=== PATIENT | male | born 1975 ===

== ENCOUNTER 2016-11-14 08:47 | Emergency (ER) | payer MEDICARE, MEDICAID ==
--- NOTE | ~2016-11-14 | ER ---
[facility] AGE: 41 Y [address] ROOM: [place] [address] LOCATION: [facility] ADMIT DATE: 11/14/2016 ER/Outpatient Report DISCHARGE DATE: FAMILY PHYSICIAN: Jose Lang MD ATTENDING PHYSICIAN: Lucas Euceda TIME OF ARRIVAL: 0847 hours. TIME OF EVALUATION: 0850 hours. CHIEF COMPLAINT: Chest pain, midepigastric abdominal pain. HISTORY OF PRESENT ILLNESS: The patient is a 41-year-old male who presents to the emergency department today with chief complaint of chest pain, midepigastric abdominal pain. He reports this started about 3 days prior to arrival. Does have some nausea and vomiting for 2 days. Denies any shortness of breath. Does have some diaphoresis and weakness. Pain is currently 7/10 in severity. He has also been coughing. It is a sharp type pain. The patient denies any history of blood clots in legs or lungs. Denies any ripping or tearing sensation. PAST MEDICAL HISTORY: Depression, anxiety, insulin-dependent diabetes, hypertension. PAST SURGICAL HISTORY: None. SOCIAL HISTORY: The patient denies any tobacco, alcohol, or illicit drug use. ALLERGIES: NO KNOWN DRUG ALLERGIES. MEDICATIONS: Please see list. PRIMARY CARE DOCTOR: Jose Lang MD. REVIEW OF SYSTEMS: All systems are reviewed by myself and negative with the exception of those discussed in HPI and past medical history. PHYSICAL EXAMINATION: VITAL SIGNS: Weight 140.8 kg, blood pressure 170/75, pulse 99, respiratory PAT[facility]'S NAME: [facility] AGE: 41 Y [address] ROOM: [place] [id number] LOCATION: [facility] ADMIT DATE: 11/14/2016 ER/Outpatient Report DISCHARGE DATE: FAMILY PHYSICIAN: Jose Lang MD ATTENDING PHYSICIAN: Lucas Euceda rate 18, temperature 97.3, oxygen saturation 96% on room air. GENERAL: The patient is a 41-year-old male, who appears stated age. A well developed, well nourished, in no acute distress. HEENT: Normocephalic, atraumatic. Pupils are equal, round, and reactive to light and accommodation. NECK: Supple. There is no JVD, no nuchal rigidity. CARDIOVASCULAR: Regular rate and rhythm. No murmurs, rubs, or gallops. LUNGS: Clear to auscultation bilaterally. No wheezes, rales, or rhonchi. ABDOMEN: Soft with some mild midepigastric tenderness to palpation. No rebound, rigidity, or guarding. Positive bowel sounds. MUSCULOSKELETAL: The patient moves all 4 extremities. SKIN: Warm and dry without rashes or lesions noted. LABORATORY DATA AND X-RAYS: Obtained. It does reveal EKG at 0850 hours shows sinus rhythm with a rate of 97, normal axis, normal interval. No ST elevation, ST depression, T-wave inversions. CBC is normal. D-dimer is 0.55. Coags are normal. Cardiac enzymes are normal. CMP is unremarkable. LFTs are normal. Magnesium is normal. CK is 384. Cardiac enzymes are normal. CT scan of the chest is obtained. I have discussed results with the radiologist. There is no evidence of PE. Enzymes are negative. IMPRESSION: 1. Chest pain, unclear etiology. 2. Acute nonsurgical midepigastric abdominal pain. 3. Initial visit. EMERGENCY DEPARTMENT COURSE: The patient was brought back to the examination room. Seen evaluated by myself. IV is established. Laboratory analysis and imaging are obtained as described above. The patient is given 4 baby aspirin and sublingual nitroglycerin as well as a liter of normal saline IV. I have discussed results with the patient. He is feeling improved at this time. The patient's cardiac enzymes are normal. I have discussed that I would like him to follow up with Dr. Lang in 2 days for re-evaluation. I have discussed return to care instructions including worsening symptoms or other concerns to return to the emergency department as soon as possible. The patient is agreeable. He is without further questions time. DISPOSITION: The patient discharged home in good condition. PATIENT'S NAME: [facility]A [facility] AGE: 41 Y [address] ROOM: [place] [id number] LOCATION: [facility] ADMIT DATE: 11/14/2016 ER/Outpatient Report DISCHARGE DATE: FAMILY PHYSICIAN: Jose Lang MD ATTENDING PHYSICIAN: Lucas Euceda DO KJBarney/modl /[id number] d: 11/14/16 1404 t: 11/15/16 1544, OUTPATIENT REPORT
[2016-11-14 09:09] LABS: BASOPHIL % 0.4 %; EOSINOPHIL # 0.8 K/uL (0.0-0.5); EOSINOPHIL % 8.5 %; HEMATOCRIT 39.4 % (37.0-53.0); HEMOGLOBIN 12.8 g/dL (12.0-17.0); IMMATURE GRANULOCYTE % 0.4 %; LYMPHOCYTE # 2.6 K/uL (0.8-4.0); LYMPHOCYTE % 26.4 %; MCH 25.8 pg (27.0-34.0); MCHC 32.5 gm/dL (32.0-36.5); MCV 79.4 fl (83.0-98.0); MONOCYTE # 0.7 K/uL (0.0-1.0); MONOCYTE % 7.4 %; NEUTROPHIL # (ANC) 5.5 K/uL (1.4-9.0); NEUTROPHIL % 56.9 %; NRBC % 0 /100WBC (0-0.00); PLATELET COUNT 191 K/uL (150-450); RBC 4.96 M/uL (4.00-6.00); RDW-CV 14.4 % (11.9-14.6); WBC 9.7 K/uL (4.0-11.0)
[2016-11-14 09:18] LABS: INR - (THERAPEUTIC) 0.96 (0.92-1.07); PROTIME 10.1 SECONDS (9.8-11.4); PTT 28 SECONDS (25-32)
[2016-11-14 09:28] LABS: ALBUMIN 3.5 gm/dL (3.5-5.0); ALK PHOS 80 IU/L (33-138); ALT 29 IU/L (12-78); ANION GAP 13.4 (10.0-19.0); AST 15 IU/L (10-40); BLOOD UREA NITROGEN 15 mg/dL (6-24); CALCIUM 8.9 mg/dL (8.5-10.5); CHLORIDE 103 mMol/L (96-110); CO2 26 mMol/L (22-32); CPK 384 IU/L (35-332); CREATININE 1.3 mg/dL (0.6-1.3); ESTIMATED GFR (MDRD EQUATION) 60; POTASSIUM 3.4 mMol/L (3.7-5.1); SODIUM 139 mMol/L (135-145); TOTAL BILIRUBIN 0.3 mg/dL (0.0-1.5); TOTAL PROTEIN 7.1 g/dL (6.0-8.4)
[2016-11-14 11:27] LABS: CPK 341 IU/L (35-332)
[2016-11-14 11:42] LABS: BILIRUBIN URINE NEGATIVE (NEGATIVE); BLOOD URINE NEGATIVE /UL (NEGATIVE); COLOR URINE YELLOW (YELLOW); GLUCOSE URINE NEGATIVE (NEGATIVE); KETONE URINE NEGATIVE (NEGATIVE); LEUKOCYTES URINE NEGATIVE /UL (NEGATIVE); NITRITE URINE NEGATIVE (NEGATIVE); PROTEIN URINE NEGATIVE (NEGATIVE); TURBIDITY URINE CLEAR (CLEAR); UROBILINOGEN URINE NORMAL (NORMAL)
== END 2016-11-14 11:41 | disposition disaster alternative care site (69) ==
LOC: GMED 08:47
PROVIDERS: Emergency Medicine
DX: R07.9 Chest pain, unspecified (principal); R10.13 Epigastric pain; F32.9 Major depressive disorder, single episode, unspecified; F41.9 Anxiety disorder, unspecified; E11.9 Type 2 diabetes mellitus without complications; I10 Essential (primary) hypertension; Z88.0 Allergy status to penicillin; Z79.4 Long term (current) use of insulin; Z79.899 Other long term (current) drug therapy